=== PATIENT | female | born 1955 | race Caucasian/White ===

== ENCOUNTER 2018-03-01 09:16 | Emergency (ER) | payer OTHER ==
[2018-03-01] MEDS: ACETAMINOPHEN 325 MG TAB PO (09:48)
[2018-03-01] MEDS: IBUPROFEN 200 MG TAB PO (09:49)
[2018-03-01 09:52] LABS: URINE BLOOD (Dip) POC 2+ (NEGATIVE); URINE KETONES (Dip) POC 2+ (NEGATIVE); URINE LEUKOCYTE EST (Dip) POC 1+ (NEGATIVE); URINE NITRITE (Dip) POC Positive (NEGATIVE); URINE TOTAL PROTEIN POC 2+ (NEGATIVE)
== END 2018-03-01 09:54 | disposition home or self-care (01) ==
LOC: FTE 09:54
DX: N39.0 Urinary tract infection, site not specified (principal)
CPT/HCPCS: 81003; 99283